=== PATIENT | male | born 1970 | race Caucasian/White ===

== ENCOUNTER 2022-07-10 16:34 | Outpatient (CLI) | payer OTHER, MEDICAID, SELFPAY ==
[2022-07-10 19:09] LABS: Albumin* 4.6 g/dL (3.3-5.0); Chloride* 106 mmol/L (96-114)
[2022-07-10 19:10] LABS: Potassium* 4.5 mmol/L (3.6-5.1); Sodium* 142 mmol/L (135-149)
[2022-07-10 19:12] LABS: Aspartate Amino Transferase* 26 U/L (12-35); Bilirubin Total* 0.8 mg/dL (0.1-1.5); Carbon Dioxide* 30 mmol/L (20-32); Creatinine* 1.4 mg/dL (0.5-1.5); Estimated Glomerular Filt Rate 61 ml/min; Total Protein* 6.7 g/dL (6.0-8.3)
[2022-07-10 19:13] LABS: Alanine Aminotransferase* 26 U/L (4-50); Alkaline Phosphatase* 40 U/L (40-150); Blood Urea Nitrogen* 19 mg/dL (7-30); Calcium* 9.4 mg/dL (8.4-10.6); Glucose* 84 mg/dL (60-115)
[2022-07-10 19:44] LABS: PSA Screen* 0.29 ng/mL (0.10-4.00)
[2022-07-12 19:05] LABS: Testosterone, Adult Male 173 ng/dL (300-890)
== END 2022-07-10 16:35 | disposition home or self-care (01) ==
PROVIDERS: PCP Family Medicine; Visit Provider Family Medicine
DX: N52.9 Male erectile dysfunction, unspecified (principal); R25.1 Tremor, unspecified; D68.2 Hereditary deficiency of other clotting factors; E11.9 Type 2 diabetes mellitus without complications; Z12.5 Encounter for screening for malignant neoplasm of prostate
CPT/HCPCS: 80053; 84153; 84403; 84443

== ENCOUNTER 2023-03-05 09:12 | Outpatient (CLI) | payer OTHER, MEDICAID, SELFPAY ==
--- NOTE | 2023-03-05 10:12 | W.ANESCHARGE ---
Anesthesia Charges Start Date/Time Anesthesia Start Date: 03/05/23 Anesthesia Start Time: 09:45 Stop Date/Time Anesthesia Stop Date: 03/05/23 Anesthesia Stop Time: 10:10
== END 2023-03-05 09:13 | disposition home or self-care (01) ==
LOC: OP CLINIC 09:14
PROVIDERS: PCP Family Medicine; Visit Provider Internal Medicine
DX: Z12.11 Encounter for screening for malignant neoplasm of colon (principal)
CPT/HCPCS: 45378; 812; J2704

== ENCOUNTER 2023-08-06 08:50 | Outpatient (CLI) | payer OTHER, MEDICAID, SELFPAY | END 2023-08-06 08:51 | disposition home or self-care (01) | PROVIDERS: PCP Family Medicine; Visit Provider Family Medicine | DX: R79.89 Other specified abnormal findings of blood chemistry (principal); Z12.5 Encounter for screening for malignant neoplasm of prostate; Z13.6 Encounter for screening for cardiovascular disorders | CPT/HCPCS: 80048; 80061; G0103 ==

== ENCOUNTER 2024-03-01 07:40 | Outpatient (CLI) | payer OTHER, SELFPAY | END 2024-03-01 07:41 | disposition home or self-care (01) | LOC: NFLDREF 03-03 10:23 | PROVIDERS: PCP Family Medicine; Referring Provider Family Medicine; Visit Provider Family Medicine | DX: R79.89 Other specified abnormal findings of blood chemistry (principal); R73.9 Hyperglycemia, unspecified | CPT/HCPCS: 84403 ==

== ENCOUNTER 2024-09-21 07:11 | Day surgery (SDC) | payer OTHER, SELFPAY ==
[2024-09-21] VITALS (10 sets, daily range): BP systolic 119–132; BP diastolic 73–84; PULSE 63–82; RESP 12–16; TEMP 36.6; O2SAT 97–100; BMI 30.1
--- OUTSIDE RECORDS SUMMARY | 2024-09-21 07:15 | XMS_ITS | Clinical Summary ---
Author Organization [place] Address [address] [place] [id number] Care Team Providers Care Book Retailer Name Role Phone [facility], [facility] Primary Care Provide r Allergies No known active allergies Social History Tobacco Use Types Packs/Day Years Used Date Smoking Tobacco: Never Assessed Sex and Gender Information Value Date Recorded Sex Assigned at Not on file Legal Sex Male 10:43 PM CDT Gender Identity Not on file Sexual Orientation Not on file Last Filed Vital Signs Vital Sign Reading Time Taken Comments Blood Pressure 120/70 01/18/2020 3:20 AM CDT Pulse 61 01/18/2020 1:15 AM CDT Temperature 36.6 C (97.9 F) 01/17/2020 10:44 PM CDT Respiratory Rate 20 01/17/2020 10:44 PM CDT Oxygen Saturation 98% 01/18/2020 1:15 AM CDT Inhaled Oxygen Concentration - - Weight - - Height - - Body Mass Index - - Plan of Treatment Not on file Insurance [employer] Book Retailer Relationship Specialty Start Date End Date [facility], [address] [id number] PCP - General 01/18/20
[2024-09-21] MEDS: SODIUM CHLORIDE 0.9 % (FLUSH) 10 ML SYRINGE IVF (07:34)
[2024-09-21] MEDS: CEFAZOLIN 2 GM INJ IVP (08:08)
[2024-09-21] MEDS: BUPIVACAINE 0.5 %/EPI 1:200K INJECTION (08:13)
[2024-09-21] MEDS: LIDOCAINE 2%-EPI 1:200,000 20 ML INFILTRATI (08:13)
--- NOTE | 2024-09-21 08:54 | P.ORPRC_ITS ---
Procedure Note Date of procedure: 09/21/24 Procedure: Preop diagnosis: Right upper extremity carpal tunnel syndrome Postop diagnosis: Right upper extremity carpal tunnel syndrome Procedure: Right upper extremity carpal tunnel release Anesthesia: Local Surgeon: Ilan Olivera MD document control assistant: NATALIE Whitt EBL: 1 mL Complications: None Specimens: None Drains: None Preoperative antibiotics: Ancef 2 g Indications: The patient has a history of right upper extremity carpal tunnel syndrome symptoms. Despite appropriate nonoperative management consisting of nighttime bracing and occupational therapy they continue to have symptoms. Operative intervention was recommended. The risks, benefits alternatives and expected outcomes were discussed in detail. These included but were not limited to: Infection, bleeding, injury to blood vessel or nerve, venous thromboembolism. All questions were answered to their satisfaction. The patient was placed supine on the operating room table. Local anesthesia was established with 0.5% Marcaine with epinephrine and 2% lidocaine with epinephrine. The hand was prepped and draped in usual sterile fashion. A longitudinal incision was made centered over the radial border of the ring finger at the base of the palm. Subcutaneous dissection was sharply taken through the palmar fascia and the palmaris brevis to the transverse carpal ligament. The ligament was divided in line with the incision. Proximal and dist al dissection was carried with tenotomy and Metzenbaum scissors for a wide decompression of the carpal tunnel. The wound was closed with a 3-0 nylon. A bulky dry dressing was applied, sponge and needle counts were correct x 2. The patient tolerated the procedure well, there were no apparent complications. They were sent to same day surgery in satisfactory condition. Plan: Use of the hand as tolerates. Discontinue the intraoperative dressing on postoperative day 3 and may get the wound wet as tolerates. Follow up in the office in 2 weeks for a wound check and suture removal.
== END 2024-09-21 09:12 | disposition home or self-care (01) ==
PROVIDERS: PCP Family Medicine; Visit Provider Orthopaedic Surgery
PROC: (CPT 64721; principal; 2024-09-21 08:30)
DX: G56.01 Carpal tunnel syndrome, right upper limb (principal)
CPT/HCPCS: 64721; J0690; J3490

== ENCOUNTER 2024-09-28 07:59 | Outpatient (CLI) | payer OTHER, SELFPAY | END 2024-09-28 08:00 | disposition home or self-care (01) | LOC: NFLDREF 10-01 05:13 | PROVIDERS: PCP Family Medicine; Referring Provider Family Medicine; Visit Provider Family Medicine | DX: R79.89 Other specified abnormal findings of blood chemistry (principal) | CPT/HCPCS: 84403 ==

== ENCOUNTER 2025-01-18 06:12 | Day surgery (SDC) | payer OTHER, SELFPAY ==
[2025-01-18] VITALS (9 sets, daily range): BP systolic 115–131; BP diastolic 69–97; PULSE 68–84; RESP 12–17; TEMP 36.6–36.7; O2SAT 93–97; BMI 32.5
[2025-01-18] MEDS: SODIUM CHLORIDE 0.9 % (FLUSH) 10 ML SYRINGE IVF (06:44)
[2025-01-18] MEDS: BUPIVACAINE 0.5 %/EPI 1:200K INJECTION (07:09)
[2025-01-18] MEDS: LIDOCAINE 1%-EPI 1:100,000 20 ML INJECTION (07:09)
[2025-01-18] MEDS: CEFAZOLIN 1 GM inj IVP (07:14)
--- NOTE | 2025-01-18 07:45 | PM.ORPRC ---
Procedure Note Date of procedure: 01/18/25 Procedure: Preop diagnosis: Left upper extremity carpal tunnel syndrome Postop diagnosis: Left upper extremity carpal tunnel syndrome Procedure: Left upper extremity carpal tunnel release Anesthesia: Local Surgeon: Ilan Olivera MD financial legal assistant: EFRAIN Groves EBL: 2mL Complications: None Specimens: None Drains: None Preoperative antibiotics: Ancef 2 g Indications: The patient has a history of left upper extremity carpal tunnel syndrome symptoms. Despite appropriate nonoperative management consisting of nighttime bracing and occupational therapy they continue to have symptoms. Operative intervention was recommended. The risks, benefits alternatives and expected outcomes were discussed in detail. These included but were not limited to: Infection, bleeding, injury to blood vessel or nerve, venous thromboembolism. All questions were answered to their satisfaction. The patient was placed supine on the operating room table. Local anesthesia was established with 0.5% Marcaine with epinephrine and 2% lidocaine with epinephrine. The hand was prepped and draped in usual sterile fashion. A longitudinal incision was made centered over the radial border of the ring finger at the base of the palm. Subcutaneous dissection was sharply taken through the palmar fascia and the palmaris brevis to the transverse carpal ligament. The ligament was divided in line with the incision. Proximal and distal dissection was carried with tenotomy and Metzenbaum scissors for a wide decompression of the carpal tunnel. The wound was closed with a 3-0 nylon. A bulky dry dressing was applied, sponge and needle counts were correct x 2. The patient tolerated the procedure well, there were no apparent complications. They were sent to same day surgery in satisfactory condition. Plan: Use of the hand as tolerates. Discontinue the intraoperative dressing on postoperative day 3 and may get the wound wet as tolerates. Follow up in the office in 2 weeks for a wound check and suture removal.
== END 2025-01-18 08:03 | disposition home or self-care (01) ==
LOC: OR 06:13
PROVIDERS: PCP Family Medicine; Visit Provider Orthopaedic Surgery
PROC: (CPT 64721; principal; 2025-01-18 07:15)
DX: G56.02 Carpal tunnel syndrome, left upper limb (principal)
CPT/HCPCS: 64721; J0690; J3490